=== PATIENT | female | born 1975 | race Caucasian/White ===

== ENCOUNTER 2020-09-25 10:23 | Emergency (ER) | payer BC ==
[2020-09-25] MEDS ORDERED: NS 1,000 ML IV ONE (10:35)
[2020-09-25 11:40] VITALS: BP 117/65
--- NOTE | 2020-09-25 16:47 | ECGEPIP ---
[facility] - ED Test Date: 2020-09-25 Pat Name: JELENA SAAVEDRA Department: Room: - Gender: Female [employer] Po[employer]er: : 1975 Requested By: Aracely Pyle Order Number: [id number] Reading MD: Braulio Renee Measurements Intervals [place] Rate: 54 P: 67 OR: 140 QRS: 82 QRSD: 70 T: 70 QT: 418 QTc: 396 Interpretive Statements Sinus bradycardia Baseline artifact Comparison tracing not on file Electronically Signed on 09-25-2020 16:46:31 EDT by Braulio Renee
== END 2020-09-25 11:41 | disposition home or self-care (01) ==
LOC: M ED 10:23
DX: R55 Syncope and collapse (principal)